=== PATIENT | female | born 1980 | race Caucasian/White ===

== ENCOUNTER 2023-04-24 11:16 | Outpatient (AMB) | payer MEDICARE, MEDICAID, SELFPAY ==
--- NOTE | 2023-04-24 11:23 | A.OFFPC_ITS ---
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 Intake Note: pt is here for arnp establish care request physical, concerns with cholesterol and high blood pressure [employer]ers[employer] Helper Required: No Accompanied by: Self / Same As Patient Allergies clindamycin Allergy (Severe, Verified 04/24/23 11:44) Itching latex Allergy (Unknown, Verified 04/24/23 11:44) Unknown lupron depot Adverse Reaction (Intermediate, Uncoded 04/24/23 11:44) Rash Medication List - Last Reconciled 04/24/23 by Eric Oliveira CNP amlodipine 10 mg PO DAILY atorvastatin 10 mg PO DAILY clonazepam 0.25 mg PO BID hydrochlorothiazide 25 mg PO DAILY lisinopril 10 mg PO DAILY Tobacco use date assessed: 04/24/23 Dental Screening Dental Screen Date: 04/24/23 Did you have a dental visit in the last 12 months?: Yes Did you have a dental problem in the last 6 months where you did not have access to dental care?: No Was dental information given to patient?: Patient has dentist HPI HPI Comments History of Present Illness Details 43-year-old female presents to establish care She notes she was last evaluate by her former PCP a few months ago She has PMH significant HTN, HLD, and anxiety She notes she takes her medications as prescribed She states she sees a therapist twice weekly and a psychiatrist every 3 month. Her psychiatrist manages her psychotropic medication; she has a f/u appointment this month. She notes her vision has diminished in the past 2 months. She denies eye pain or visual disturbances. She states her symptoms may be attributed to using her smart phone frequently. She requests ophthalmology referral. [facility] Medical History (Updated 04/24/23 @ 17:39 by Eric Oliveira CNP) Anxiety Arthritis Depression Hypercholesteremia Hypertension Left breast abscess Thalassemia Surgical History (Updated 04/24/23 @ 11:30 by Brett Andrade CMA) H/O myomectomy H/O right breast biopsy History of back surgery History of lumpectomy of right breast Hx of appendectomy Hx of section Family History (Updated 03/18/23 @ 08:54 by Kalina Martinez) Father Hypertension CAD (coronary artery disease) Heart attack Mother Hypertension Diabetes Hypothyroidism Asthma Sister Mental disorder Maternal Aunt Breast cancer Social History (Updated 04/24/23 @ 11:31 by Brett Andrade [facility]) Housing: House Alcohol intake: current Alcohol intake frequency: holidays/special occasions only Alcohol type: wine and hard liquor Patient Tobacco Use Status: Current everyday Tobacco user Cigarette Packs Per Day: 0.75 Cigarettes Per Day: 12 e-Cigarette/Vaping Use: Never Used Second Hand Smoke Exposure: Yes service: No Current occupational status: disabled Current occupational exposures/hazards: No Cognitive needs: No Hearing needs: No Vision needs: No Questionnaire PHQ-9 Over the last 2 weeks, how often have you been bothered by any of the following problems? 1. Little interest or pleasure in doing things: several days 2. Feeling down, depressed, or hopeless: several days 3. Trouble falling or staying asleep, or sleeping too much: not at all 4. Feeling tired or having little energy: nearly every day 5. Poor appetite or overeating: nearly every day 6. Feeling bad about yourself - or that you are a failure or have let yourself or your family down: several days 7. Trouble concentrating on things, such as reading the newspaper or watching television: not at all 8. Moving or speaking so slowly that other people could have noticed. Or the opposite - being so fidgety or restless that you have been moving around a lot more than usual: not at all 9. Thoughts that you would be better off or of hurting yourself in some way: not at all Total score: 9 Depression Screening Interpretation: Positive 43632 - PHQ-9 Billing: Yes Source: Developed by Drs. Daniel Hill, Grayc Gold, Syed Shaver and colleagues, with an educational ramsey from [employer]. Thrive Questionnaire Date Thrive assessed: 04/24/23 I am a: Patient What is your living situation today?: I have a steady place to live Within the past 12 months, did the food you bought not last and you didn't have the money to get more?: Never true Within the past 12 months, did you worry whether your food would run out before you got money to buy more?: Never true Do you have trouble paying for medicines?: No Do you have trouble getting transportation to medical appointments?: No Do you have trouble paying your heating and electricity bill?: No Do you have trouble taking care of your child, family member or friend?: No Do you have trouble with day-to-day activities such as bathing, preparing meals, shopping, managing finances, etc.?: No Are you currently unemployed and looking for a job?: No Are you interested in more education?: No Please select the resources that you would like help with: None Currently or been in a relationship where the following occur: no concerns reported AUDIT C Alcohol Use Questionnaire (AUDIT-C) 1. How often do you have a drink containing alcohol?: 2-4 times a month 2. How many drinks containing alcohol do you have on a typical day when you are drinking?: 1 or 2 3. How often do you have six or more drinks on one occasion?: Never Total Score: 2 TEO-7 AMB Questionnaire TEO-7 Date TEO - 7 assessed: 04/24/23 Feeling nervous, anxious, or on edge: 3 = Nearly every day Not being able to stop or control worryin = Nearly every day Worrying too much about different things: 3 = Nearly every day Trouble relaxin = Several days Being so restless that it is hard to sit still: 1 = Several days Becoming easily annoyed or irritable: 1 = Several days Feeling afraid as if something awful might happen: 2 = More than half the days Total TEO-7 score (0-4 normal; 5-9 mild; 10-14 moderate; 15-21 severe): 14 Source: Developed by Drs. Daniel Hill, Gracy Gold, Syed Shaver and colleagues, with an educational ramsey from [employer]. TEO-7 Assessment Billing TEO-7 Assessment Tool: TEO-7 Assessment 73726 Review of Systems Const Details: Const Denies chills, Denies fatigue, Denies fever(s), Denies headache(s) and Denies weakness ENT Denies dizziness and Denies headache(s) Card Denies chest pain, Denies lightheadedness, Denies dyspnea and Denies other (Palpitations) Resp Denies cough, Denies dyspnea, Denies wheezing and Denies other ( shortness of breath) GI Denies abdominal pain, Denies melena, Denies hematochezia, Denies change in bowel habits, Denies dyspepsia and Denies nausea Denies hematuria and Denies dysuria Musc Denies abnormal gait, Denies myalgias, Denies arthralgias, Denies numbness and Denies tingling Skin/Breast Denies rash, Denies unusual bruising and Denies wounds Neuro Denies abnormal gait, Denies dizziness, Denies headache(s), Denies memory loss, Denies numbness, Denies Sensory deficit (Neuro), Denies tingling and Denies weakness Psych Denies anxiety and Denies depression Endo Denies cold intolerance, Denies fatigue, Denies heat intolerance, Denies polydipsia and Denies polyuria Aller/Immun Denies wheezing Physical exam (Primary Care) Vital Signs: Last Vital Signs Pulse 78 04/24/23 11:25 BP 130/78 04/24/23 11:54 Pulse Ox 99 04/24/23 11:25 BMI result Body Mass Index 33.5 Tobacco/Smoking Status: Tobacco use Status Tobacco use date assessed 04/24/23 04/24/23 11:36 Patient Tobacco Use Status Current everyday Tobacco 04/24/23 11:36 Tobacco use type Cigarette 04/24/23 11:36 e-Cigarette/Vaping Use Never Used 04/24/23 11:36 PHQ-9: PHQ-9 Score PHQ-9: Total score 9 04/24/23 12:10 Depression Screening Interpretation: Positive Thrive Assessment: Date of Thrive Assessment Date Thrive assessed 04/24/23 04/24/23 11:38 Currently or been in a relationship where the following occur: no concerns reported Const Other: General: no acute distress and well developed Nutritional Appearance: well nourished Orientation/consciousness: patient oriented x3 HENMT Head: Yes normocephalic and Yes atraumatic Eyes General: appearance normal, both eyes and all related structures Pupils: Equal, round and reactive pupils present EOM: EOMs intact bilaterally Resp Effort & Inspection: normal respiratory effort Auscultation: clear to auscultation bilaterally Cardio Rate: regular rate Rhythm: regular rhythm Heart sounds: S1 normal heart sound present, S2 normal heart sound present, no gallops, no murmurs and no rubs GI Palpation (GI): No Abdominal aortic bruit present, Soft to palpation, nontender, No hepatosplenomegaly present and No Rebound tenderness present Auscultation: normal bowel sounds General: Yes no CVA tenderness Back/Spine/Pelvis Back: no CVA tenderness Cervical Spine: cervical ROM normal and No Cervical spine tenderness Thoracic/Lumbar Spine: thoraco-lumbar ROM normal, No pain with thoraco-lumbar ROM, No thoracic spinal tenderness and No lumbar spinal tenderness Extrem General: Yes normal to inspection, No edema and No calf tenderness Skin General: warm and dry. Normal skin color. Normal skin turgor Lesions: no lesions Rashes: no rashes Trauma: no lacerations or abrasions Wounds: no wounds Nails: normal Neuro General: patient oriented x3, gait normal and no focal neuro deficit Cranial nerves: Yes Equal, round and reactive pupils present Cognition (Neuro): normal cognition Gait exam (Neuro): Normal gait present Sensory Exam: No Sensory deficit (Neuro) Psych Appearance: grossly normal Affect: normal affect Attitude: cooperative Thought process: Normal thought process present Assessment and Plan Assessment & Plan (1) Hypertension: Code(s): I10 - Essential (primary) hypertension Plan: Resting blood pressure is 130/78, within goal of less than 140/90 Continue to take antihypertensives as prescribed Low-sodium diet encouraged Follow-up in 1 month or return sooner with symptoms or concerns Verbalized understanding and agreed with treatment plan. (2) Hypercholesteremia: Code(s): E78.00 - Pure hypercholesterolemia, unspecified Plan: Reports history of elevated cholesterol Take atorvastatin as prescribed Limit foods high in saturated fat and avoid foods high trans fat Routine exercise encouraged Lab ordered Follow-up in 1 month Verbalized understanding and agreed with the treatment plan. (3) Anxiety: Code(s): F41.9 - Anxiety disorder, unspecified Plan: PHQ-9 and TEO-7 scores revealed mild depression and moderate anxiety respectively Clonazepam as prescribed Routine exercise encouraged Continue to follow-up with therapist and psychiatrist Return in 1 month or sooner with worsening or new symptoms Verbalized understanding and agreed with treatment plan. (4) Depression: Code(s): F32.A - Depression, unspecified Plan: As above (5) Decreased vision in both eyes: Code(s): H54.3 - Unqualified visual loss, both eyes Plan: She notes her vision has diminished the past 2 months. She denies eye pain or visual disturbances. She states her symptoms may be attributed to using her smart phone frequently. She requests ophthalmology referral. 20/15 vision of both eyes Referred to Ophthalmology Follow-up with worsening or new symptoms Verbalized understanding and agreed with the plan. (6) Laboratory tests ordered as part of a complete physical exam (CPE): Code(s): Z00.00 - Encounter for general adult medical examination without abnormal findings Plan: Fasting labs ordered as part of a complete physical exam. Advised to fast for at least 10 hours before getting labs drawn. May drink water Verbalized understanding and agreed with treatment plan. Orders: Orders Comprehensive [place]. Panel Fast Today Z00.00 - Encounter for general adult medical examination without abnormal findings Lipid Panel Today Z00.00 - Encounter for general adult medical examination without abnormal findings TSH reflex Free T4 Today Z00.00 - Encounter for general adult medical examination without abnormal findings Complete Blood Count Auto Diff Today Z00.00 - Encounter for general adult medical examination without abnormal findings UA CC w/rflx Micro + Cult Today Z00.00 - Encounter for general adult medical examination without abnormal findings Referrals Ophthalmology Referral H54.3 - Unqualified visual loss, both eyes Coding Level of Care Code Est Pt Level 3 (05481) Diagnoses Hypertension I10 Hypercholesteremia E78.00 Anxiety F41.9 Depression F32.A Decreased vision in both eyes H54.3 Laboratory tests ordered as part of a complete physical exam (CPE) Z00.00 CPT Codes Vision Screening - Vision Screenin - Vision Screening ([id number]) Additional Codes TEO-7 Assessment Billing - TEO-7 Assessment Tool: TEO-7 Assessment 49289 ([id number]) Time Spent (min) 25 Vision Screening Right Eye: 20/15 Left Eye: 20/15 Bilateral: 20/15 Overall Vision Screening Results: Pass 20330 - Vision Screening
[2023-04-24 11:25] VITALS: BP 140/80; PULSE 78; O2SAT 99; BMI 33.5
[2023-04-24 11:54] VITALS: BP 130/78
== END 2023-04-24 12:12 | disposition home or self-care (01) ==
PROVIDERS: PCP Nurse Practitioner Family; Visit Provider Nurse Practitioner Family
DX: I10 Essential (primary) hypertension (principal); E78.00 Pure hypercholesterolemia, unspecified; F41.9 Anxiety disorder, unspecified; F32.A Depression, unspecified; H54.3 Unqualified visual loss, both eyes
CPT/HCPCS: 96127; 99213